=== PATIENT | female | born 1985 | race Caucasian/White ===

== ENCOUNTER → 2018-12-21 | Emergency (ER) | payer OTHER ==
[~2018-12-21] MED LIST: ALPRAZolam 0.25 MG TABLET PO ONE
[2018-12-21 09:58] VITALS: BP 126/66; PULSE 94; TEMP 98.4; BMI 25.2
--- NOTE | 2018-12-21 11:16 | PDOC ---
History of Present Illness - General Chief Complaint: Psychiatric Stated Complaint: ANXIETY Past History - Past Medical History Home Medications: Ambulatory Orders Alprazolam [Xanax] 0.25 mg PO BID #7 tablet MDD 2 12/21/18 Asthma: Yes COPD: No - Immunization History Immunization Up to Date: No - Suicide/Smoking/Psychosocial Hx Smoking History: Never smoked Have you smoked in the past 12 months: No Information on smoking cessation initiated: No Hx Alcohol Use: No Drug/Substance Use Hx: No *Physical Exam - Vital Signs Last Vital Signs Temp Pulse Resp BP Pulse Ox 98.4 F 94 H 18 126/66 100 12/21/18 09:47 12/21/18 09:47 12/21/18 09:47 12/21/18 09:47 12/21/18 09:47 *DC/Admit/Observation/Transfer Diagnosis at time of Disposition: Anxiety - Discharge Dispostion Disposition: HOME Condition at time of disposition: Stable Decision to Admit order: No - Referrals Referrals: Gerri Atkinson [Primary Care Provider] - - Patient Instructions Additional Instructions: You were evaluated for your anxiety today Continue taking the Hydroxazine as previously prescribed You may take a Xanax for break through anxiety. Do not drink or drive after taking this medication Please follow up with your primary care as soon as possible Return to the ED for any new or worsening symptoms - Post Discharge Activity Forms/Work/School Notes: Back to Work
--- NOTE | 2018-12-21 13:41 | EKG ---
Test Reason : Blood Pressure : / mmHG Vent. Rate : 075 BPM Atrial Rate : 075 BPM P-R Int : 108 ms QRS Dur : 086 ms QT Int : 386 ms P-R-T Axes : 018 045 029 degrees QTc Int : 431 ms SINUS RHYTHM WITH SHORT SD OTHERWISE NORMAL ECG NO PREVIOUS ECGS AVAILABLE Confirmed by SAMIR KAHN MD ([id number]) on 12/21/2018 1:41:00 PM Referred By: Confirmed By:SAMIR KAHN MD
== END | disposition home or self-care (01) ==
LOC: JER 09:25
DX: F41.9 Anxiety disorder, unspecified (principal); Z63.4 Disappearance and death of family member
CPT/HCPCS: 93005; 93010; 99281-25

== ENCOUNTER 2019-01-23 16:07 | Emergency (ER) | payer OTHER | END 2019-01-23 18:25 | disposition home or self-care (01) | LOC: JERFT 16:07 ==

== ENCOUNTER 2022-02-23 04:52 | Day surgery (SDC) | payer OTHER ==
[2022-02-18 16:54] VITALS: BMI 25.2
[2022-02-23 07:12] LABS: HEMATOCRIT 33.7 % (32.4-45.2); HEMOGLOBIN 11.2 GM/dL (10.7-15.3); MCH 27.9 pg (25.7-33.7); MCHC 33.4 g/dl (32.0-36.0); MEAN CELL VOLUME 83.6 fl (80-96); MEAN PLT VOLUME 8.8 fl (7.5-11.1); PLATELET COUNT 252 10^3/uL (134-434); RBC 4.03 M/mm3 (3.60-5.2); RDW 14.2 % (11.6-15.6); WHITE BLOOD COUNT 9.9 K/mm3 (4.0-10.0)
[2022-02-23] MEDS ORDERED: PROPOFOL 20 ML ONE ×2 (07:16→08:11)
[2022-02-23] MEDS ORDERED: LIDOCAINE HCL/PF 2% SDV 5ML VIAL ONE (07:17)
[2022-02-23] MEDS ORDERED: MIDAZOLAM HCL 2 MG/2 ML SINGLE DOSE VIAL ONE (07:18)
[2022-02-23] MEDS ORDERED: oxyCODONE HCL 5 MG TABLET PO PRN (07:39)
[2022-02-23] MEDS ORDERED: IBUPROFEN 800 MG/8 ML IJ IVPB PRN (07:39)
[2022-02-23] MEDS ORDERED: ONDANSETRON 4 MG/2 ML VIAL IVPUSH PRN ×2 (07:39→09:05)
[2022-02-23] MEDS ORDERED: IBUPROFEN 600 MG TABLET (FP) PO PRN (07:39)
[2022-02-23] MEDS ORDERED: ELECTROLYTE-148 SOLN 1,000 ML IV SCH (07:45)
[2022-02-23] MEDS ORDERED: DEXAMETHASONE SOD PHOSPHATE 4 MG/1 ML VIAL ONE (08:04)
[2022-02-23] MEDS ORDERED: KETOROLAC TROMETHAMINE 30 MG/1 ML VIAL ONE (08:04)
[2022-02-23] MEDS ORDERED: LACTATED RINGERS SOLUTION 1,000 ML IV SCH (09:15)
[2022-02-23 13:53] VITALS: BP 143/78; PULSE 90; TEMP 98.2
== END 2022-02-23 13:15 | disposition home or self-care (01) ==
LOC: JASU-SURG 04:52
PROVIDERS: ATTEND Obstetrics & Gynecology
PROC: 0UDB8ZX Extraction of Endometrium, Via Natural or Artificial Opening Endoscopic, Diagnostic (ICD-10-PCS; 2022-02-23)
PROC: 0UB98ZZ Excision of Uterus, Via Natural or Artificial Opening Endoscopic (ICD-10-PCS; principal; 2022-02-23 07:30)
DX: D25.9 Leiomyoma of uterus, unspecified (principal); N92.0 Excessive and frequent menstruation with regular cycle; D64.9 Anemia, unspecified
CPT/HCPCS: 36415; 81025; 85027; 88305-TC; 94760

== ENCOUNTER 2023-11-14 17:42 | Emergency (ER) | payer OTHER ==
[2023-11-14 17:50] VITALS: BP 126/81; PULSE 93; RESP 18; TEMP 97.9; BMI 27.6
[2023-11-14 19:04] LABS: BASO % 0.5 % (0-2.0); EOS % 5.9 % (0-4.5); HEMATOCRIT 40.5 % (32.4-45.2); HEMOGLOBIN 13.5 GM/dL (10.7-15.3); LYMPH % 12.1 % (8-40); MCH 28.8 pg (25.7-33.7); MCHC 33.4 g/dl (32.0-36.0); MEAN CELL VOLUME 86.3 fl (80-96); NEUT % 75.5 % (42.8-82.8); PLATELET COUNT 318 10^3/uL (134-434); RBC 4.69 M/mm3 (3.60-5.2); RDW 14.1 % (11.6-15.6); WHITE BLOOD COUNT 11.1 K/mm3 (4.0-10.0)
[2023-11-14 19:07] LABS: EPI CELLS 34 /uL (0-25.1); HYALINE CASTS 1 /uL (0-3.1); PH,URINE 5.5 (5.0-8.0); URINE APPEARANCE CLOUDY; URINE BACTERIA >9,000 /uL (0-1359); URINE BILIRUBIN NEGATIVE (NEGATIVE); URINE COLOR YELLOW; URINE GLUCOSE (UA) NEGATIVE (NEGATIVE); URINE KETONE NEGATIVE (NEGATIVE); URINE LEUK ESTERASE NEGATIVE (NEGATIVE); URINE NITRITE POSITIVE (NEGATIVE); URINE PROTEIN TRACE (NEGATIVE); URINE RBC 1084 /uL (0-23.9); URINE WBC 44 /uL (0-25.8)
[2023-11-14 19:19] LABS: HCG,QUALITATIVE URINE Negative
[2023-11-14 19:22] LABS: ALBUMIN 3.6 g/dl (3.4-5.0); BLOOD UREA NITROGEN 13.5 mg/dL (7-18)
[2023-11-14 19:25] LABS: CREATININE 0.9 mg/dL (0.55-1.3)
[2023-11-14 19:27] LABS: BILIRUBIN,TOTAL 0.2 mg/dL (0.2-1); TOT PROT 7.6 g/dl (6.4-8.2)
[2023-11-14] MEDS ORDERED: CEPHALEXIN MONOHYDRATE 500 MG CAPSULE (UD) ONE (19:45)
[2023-11-14] MEDS: CEPHALEXIN MONOHYDRATE 500 MG CAPSULE (UD) PO ONE (19:46)
== END 2023-11-14 21:21 | disposition home or self-care (01) ==
LOC: JER 17:42 → JERFT 17:42
DX: R25.3 Fasciculation (principal); N39.0 Urinary tract infection, site not specified
CPT/HCPCS: 36415; 70450-TC; 80053; 81003; 84703; 85025; 87086; 87186; 99284-25